=== PATIENT | male | born 1970 | race Two or more races ===

== ENCOUNTER → 2017-12-16 | Emergency (ER) | payer OTHER ==
[~2017-12-16] VITALS: Ht 180.3 cm; Wt 146.5 kg
[~2017-12-16] MED LIST: ASPIR 8181 MG; GABAPENTIN25 G1; GABAPENTIN400 MG; LISINOPRIL2.5 MG PO; METFORMIN HCL1000 MG; METFORMIN HCL1000 MG PO; NORFLEX100MG PO; VOLTAREN-XR100 MG PO; ZESTRIL2.5 MG
== END | disposition home or self-care (01) ==
LOC: ER 23:23
DX: M54.89 Other dorsalgia (principal)